=== PATIENT | female | born 1960 | race Caucasian/White ===

== ENCOUNTER 2016-12-17 10:24 | Emergency (ER) | payer OTHER ==
[2016-12-17 11:15] LABS: Basophils % (Auto) 0.4 % (0.0-1.8); Eosinophils % (Auto) 4.1 % (0.0-4.3); Hematocrit 41.3 % (30.3-42.9); Hemoglobin 13.4 gm/dl (10.1-14.3); Mean Corpuscular HGB Conc 33 % (30-34); Mean Corpuscular Hemoglobin 30 pg (28-32); Mean Corpuscular Volume 94 fl (79-97); Platelet Count 213 K/mm3 (140-440); Red Blood Count 4.41 M/mm3 (3.65-5.03); Red Cell Distribution Width 14.6 % (13.2-15.2)
[2016-12-17 11:28] LABS: Bacteria,Urine 1+ /HPF (Negative); Bilirubin,Urine NEG (Negative); Blood,Urine NEG (Negative); Ketones,Urine NEG (Negative); Leukocyte Esterase,Urine SM (Negative); Mucus,Urine FEW /HPF; Nitrite,Urine NEG (Negative); Protein,Urine <15 mg/dL mg/dL (Negative); Urobilinogen,Urine < 2.0 mg/dL (<2.0)
[2016-12-17 11:32] LABS: Alanine Aminotransferase 19 units/L (7-56); Albumin 3.7 g/dL (3.9-5); Albumin/Globulin Ratio 0.9 %; Alkaline Phosphatase 77 units/L (35-129); Anion Gap 18 mmol/L; Blood Urea Nitrogen 9 mg/dL (7-17); Calcium 9.3 mg/dL (8.4-10.2); Carbon Dioxide 24 mmol/L (22-30); Chloride 101.4 mmol/L (98-107); Glucose 127 mg/dL (65-100); Lipase 42 units/L (13-60); Potassium 4.1 mmol/L (3.6-5.0); Sodium 139 mmol/L (137-145); Total Protein 7.6 g/dL (6.3-8.2)
[2016-12-17] MEDS ORDERED: ZOFRAN IV ONE (16:49)
[2016-12-17] MEDS ORDERED: NACL 0.9% 1000 ML 1,000 ML IV ONE (16:49)
[2016-12-17] MEDS ORDERED: MORPHINE IV ONE (16:50)
--- NOTE | 2016-12-17 17:06 | Emergency Department Report ---
ED Abdominal Pain HPI - General Chief Complaint: Abdominal Pain Stated Complaint: ABD PAIN Time Seen by Provider: 12/17/16 15:26 Source: patient, family Mode of arrival: Ambulatory Limitations: No Limitations - Related Data Previous Rx's Medication Instructions Recorded Last Taken Type HYDROcodone/APAP 5-325 [[place] 1 each PO Q6HR PRN #15 tablet 12/17/16 Unknown Rx 5-325 mg TAB] Ondansetron [Zofran Odt] 4 mg PO Q6HR PRN #10 tab.rapdis 12/17/16 Unknown Rx Tamsulosin [Flomax] 0.4 mg PO QDAY #10 cap 12/17/16 Unknown Rx Allergies Allergy/AdvReac Type Severity Reaction Status Date / Time naproxen sodium [From Aleve] AdvReac Angioedema Verified 12/17/16 10:41 ED Review of Systems ROS: Stated complaint: ABD PAIN Other details as noted in HPI ED Past Medical Hx - Past Medical History Previous Medical History?: No - Surgical History Past Surgical History?: No - Social History Smoking Status: Never Smoker Substance Use Type: None - Medications Home Medications: Home Medications Medication Instructions Recorded Confirmed Last Taken Type HYDROcodone/APAP 5-325 [[place] 1 each PO Q6HR PRN #15 tablet 12/17/16 Unknown Rx 5-325 mg TAB] Ondansetron [Zofran Odt] 4 mg PO Q6HR PRN #10 tab.rapdis 12/17/16 Unknown Rx Tamsulosin [Flomax] 0.4 mg PO QDAY #10 cap 12/17/16 Unknown Rx ED Physical Exam - General Limitations: No Limitations ED Course Vital Signs 12/17/16 10:42 Temperature 98.5 F Pulse Rate 68 Respiratory 18 Rate Blood Pressure 142/72 O2 Sat by Pulse 100 Oximetry ED Medical Decision Making - Lab Data Result diagrams: 12/17/16 10:57 12/17/16 10:57 Laboratory Results - last 24 hr 12/17/16 12/17/16 12/17/16 10:47 10:57 10:57 WBC 7.0 RBC 4.41 Hgb 13.4 Hct 41.3 MCV 94 MCH 30 MCHC 33 RDW 14.6 Plt Count 213 Lymph % (Auto) 31.0 Clay % (Auto) 7.7 H Eos % (Auto) 4.1 Baso % (Auto) 0.4 Lymph # 2.2 Clay # 0.5 Eos # 0.3 Baso # 0.0 Seg Neutrophils % 56.8 Seg Neutrophils # 4.0 Sodium 139 Potassium 4.1 Chloride 101.4 Carbon Dioxide 24 Anion Gap 18 BUN 9 Creatinine 0.6 L Estimated GFR > 60 BUN/Creatinine Ratio 15.00 Glucose 127 H Calcium 9.3 Total Bilirubin 0.30 AST 20 ALT 19 Alkaline Phosphatase 77 Total Protein 7.6 Albumin 3.7 L Albumin/Globulin Ratio 0.9 Lipase 42 Urine Color Yellow Urine Turbidity Clear Urine pH 7.0 Ur Specific [place] 1.011 Urine Protein <15 mg/dl Urine Glucose (UA) Neg Urine Ketones Neg Urine Blood Neg Urine Nitrite Neg Urine Bilirubin Neg Urine Urobilinogen < 2.0 Ur Leukocyte Esterase Sm Urine WBC (Auto) 5.0 Urine RBC (Auto) 1.0 U Epithel Cells (Auto) 9.0 Urine Bacteria (Auto) 1+ Urine Mucus Few - Medical Decision Making The patient is a 56-year-old female with a history of renal colic here with complaint of right and left pain in the abdomen. She had an outpatient CT performed by her primary care doctor which showed 3 stones in her left renal collecting system including a 6 mm stone in the mid left ureter and a 4 and 5 mm stone in the distal left ureter. This is causing moderate to severe obstructing hydronephrosis. I discussed the case with [place] [facility]. They are not security sales consultant however we did discuss the case at length. Without fever obvious signs of infection or intractable pain the patient is stable to be discharged. Discussion with family regarding options to follow-up. She has [employer] insurance and her urological options are limited. She understands to return the emergency Department immediately for fever nausea vomiting or worsening pain. Portions of this chart were dictated with dictation software. There may be dictation errors contained within this note. Critical care attestation.: If time is entered above; I have spent that time in minutes in the direct care of this critically ill patient, excluding procedure time. ED Disposition Clinical Impression: Renal colic, Urinary tract obstruction by kidney stone Disposition: TO HOME OR SELFCARE Is pt being admited?: No Condition: Stable Instructions: Abdominal Pain (ED), Renal Colic (ED) Additional Instructions: Please follow up with urology resources you were given Prescriptions: HYDROcodone/APAP 5-325 [[place] 5-325 mg TAB] 1 each PO Q6HR PRN #15 tablet PRN Reason: Pain Ondansetron [Zofran Odt] 4 mg PO Q6HR PRN #10 tab.rapdis PRN Reason: Nausea Tamsulosin [Flomax] 0.4 mg PO QDAY #10 cap Referrals: PRIMARY CARE, [Primary Care Provider] - 3-5 Days
[2016-12-17 18:55] VITALS: BP 136/74
== END 2016-12-17 18:56 | disposition home or self-care (01) ==
LOC: ED 10:24
DX: N23 Unspecified renal colic (principal); N13.9 Obstructive and reflux uropathy, unspecified; N20.0 Calculus of kidney
CPT/HCPCS: 36415; 80053; 81001; 83690; 85025; 93005; 93010; 96361; 96374; 96375; 99283; J2270; J2405; J7030

== ENCOUNTER 2017-02-05 10:17 | Emergency (ER) | payer OTHER ==
[2017-02-05 10:34] VITALS: BP 157/88
[2017-02-05] MEDS ORDERED: TORADOL IM ONE (10:46)
[2017-02-05 11:07] LABS: Basophils % (Auto) 0.4 % (0.0-1.8); Eosinophils % (Auto) 4.3 % (0.0-4.3); Hematocrit 41.6 % (30.3-42.9); Hemoglobin 13.8 gm/dl (10.1-14.3); Mean Corpuscular HGB Conc 33 % (30-34); Mean Corpuscular Hemoglobin 31 pg (28-32); Mean Corpuscular Volume 93 fl (79-97); Platelet Count 204 K/mm3 (140-440); Red Blood Count 4.48 M/mm3 (3.65-5.03); Red Cell Distribution Width 15.4 % (13.2-15.2); White Blood Count 7.2 K/mm3 (4.5-11.0)
[2017-02-05 11:23] LABS: Alanine Aminotransferase 19 units/L (7-56); Albumin/Globulin Ratio 1.1 %; Alkaline Phosphatase 82 units/L (35-129); Anion Gap 19 mmol/L; BUN/Creatinine Ratio 21.66; Blood Urea Nitrogen 13 mg/dL (7-17); Calcium 9.3 mg/dL (8.4-10.2); Carbon Dioxide 24 mmol/L (22-30); Chloride 104.2 mmol/L (98-107); Glucose 97 mg/dL (65-100); Lipase 45 units/L (13-60); Potassium 4.4 mmol/L (3.6-5.0); Sodium 143 mmol/L (137-145); Total Protein 7.5 g/dL (6.3-8.2)
[2017-02-05 11:34] LABS: Bilirubin,Urine NEG (Negative); Blood,Urine SM (Negative); Ketones,Urine NEG (Negative); Leukocyte Esterase,Urine LG (Negative); Mucus,Urine FEW /HPF; Nitrite,Urine NEG (Negative); Protein,Urine <15 mg/dL mg/dL (Negative); Urobilinogen,Urine < 2.0 mg/dL (<2.0)
--- NOTE | 2017-02-05 11:49 | Ultrasound Report ---
ULTRASOUND RENAL BILATERAL HISTORY: Bilateral flank pain. TECHNIQUE: transabdominal ultrasound with color Doppler interrogation. FINDINGS: The right kidney measures 11.9 x 5.5 x 4.7cm. Right renal cortex: 1.3cm. The left kidney measures 15.1 x 7.2 x 7.9cm. Left renal cortex: 1.3cm. There is severe left hydronephrosis. No convincing left nephrolithiasis or visualized left ureteral stone. No right hydronephrosis. There are 2 echogenic foci near the midpole of the right kidney consistent with punctate calyceal stones. Renal parenchymal echotexture is within normal limits. No evidence for cystic disease, mass or perinephric fluid. The bladder is empty. IMPRESSION: Left hydronephrosis. Consider further evaluation with CT stone protocol. 2 or 3 nonobstructing punctate stones in the right kidney.
== END 2017-02-05 17:35 | disposition left against medical advice (07) ==
LOC: ED 10:17
DX: R10.9 Unspecified abdominal pain (principal); Z53.21 Procedure and treatment not carried out due to patient leaving prior to being seen by health care provider
CPT/HCPCS: 36415; 76770; 80053; 81001; 83690; 84703; 85025

== ENCOUNTER 2017-05-06 10:14 | Outpatient (CLI) | payer OTHER ==
--- NOTE | 2017-05-06 10:35 | XRay Report ---
Chest 2 views: Next History: Cough. Findings: Normal cardiomediastinal silhouette. Trachea is midline. No consolidation, pneumothorax or pleural effusion. Impression: No acute cardiopulmonary findings.
== END 2017-05-06 10:15 | disposition home or self-care (01) ==
LOC: XRAY 10:14
PROVIDERS: ATTEND Family Medicine
DX: R05 Cough (principal)
CPT/HCPCS: 71020